=== PATIENT | male | born 1960 | race Hispanic/Latino ===

== ENCOUNTER 2024-06-22 07:49 | Day surgery (SDC) | payer MEDICARE, OTHER ==
[~2024-06-22] VITALS: Ht 162.6 cm; Wt 64.9 kg
[~2024-06-22 07:49] MED LIST: BAYER ASPIRIN E81 MG PO; ELIQUIS2.5 MG PO; TYLENOL500 MG PO
[2024-06-22] MEDS ORDERED: FAMOTIDINE 10MG/ML 2ML SDV IV ONE (07:54)
[2024-06-22] MEDS ORDERED: LACTATED RINGER'S 0 ML IV ONE (07:54)
[2024-06-22] MEDS ORDERED: LIDOcaine HCl 1% (Local Anesth.) 20 ML VIAL ONE (08:18)
[2024-06-22] MEDS ORDERED: ceFAZolin Sodium 2 GM/VIAL SDV ONE (08:21)
[2024-06-22] MEDS ORDERED: SODIUM CHLORIDE 0.9% 100 ML IV ONE (08:22)
[2024-06-22] MEDS ORDERED: STERILE WATER FOR IRRIGATION 1,000 ML BTL IR ONE (08:46)
[2024-06-22] MEDS ORDERED: SODIUM CHLORIDE 1,000 ML BTL IR ONE (08:46)
[2024-06-22] MEDS ORDERED: PERCOCET 5/325M1 TAB PO (10:04)
[2024-06-22] MEDS ORDERED: PHENYLEPHRINE HCL 10 MG/ML VIAL IV ONE (10:20)
[2024-06-22] MEDS ORDERED: SUGAMMADEX SODIUM 200 MG/2 ML SDV IV ONE (10:20)
[2024-06-22] MEDS ORDERED: ONDANSETRON HCl 4 MG/2 ML SDV IV ONE (10:20)
[2024-06-22] MEDS ORDERED: LIDOCAINE HCL 2% 2ML SDV IV ONE (10:20)
[2024-06-22] MEDS ORDERED: PROPOFOL 200 MG/20 ML VIAL IV ONE (10:20)
[2024-06-22] MEDS ORDERED: KETOROLAC TROMETHAMINE 30 MG/ML SDV IV ONE (10:20)
[2024-06-22] MEDS ORDERED: DEXAMETHASONE SODIUM PHOSPHATE PF 10 MG/ML SDV IV ONE (10:20)
[2024-06-22] MEDS ORDERED: ROCURONIUM BROMIDE 10 MG/ML 5ML VIAL IV ONE (10:20)
[2024-06-22] MEDS ORDERED: LACTATED RINGER'S 1,000 ML IV ONE ×2 (10:25→11:09)
[2024-06-22] MEDS ORDERED: ACETAMINOPHEN 100 ML IV ONE (10:39)
[2024-06-22] MEDS ORDERED: ONDANSETRON HCl 4 MG/2 ML SDV ONE (11:02)
[2024-06-22 11:26] VITALS: BP 120/82
== END 2024-06-22 11:39 | disposition home or self-care (01) ==
LOC: ORM 07:49
PROVIDERS: ATTEND Surgery
PROC: 0YUA4JZ Supplement Bilateral Inguinal Region with Synthetic Substitute, Percutaneous Endoscopic Approach (ICD-10-PCS; principal; 2024-06-22)
DX: K40.20 Bilateral inguinal hernia, without obstruction or gangrene, not specified as recurrent (principal); D17.6 Benign lipomatous neoplasm of spermatic cord; I48.91 Unspecified atrial fibrillation; I34.0 Nonrheumatic mitral (valve) insufficiency; Z95.0 Presence of cardiac pacemaker
CPT/HCPCS: C1781; J0131; J0690; J1100